=== PATIENT | female | born 1945 | race African-American/Black ===

== ENCOUNTER 2016-08-29 06:02 | Inpatient (IN) | payer OTHER ==
[~2016-08-29] VITALS: Ht 177.8 cm; Wt 193.5 kg
[2016-08-29 06:02] VITALS: BP 108/50; PULSE 100; RESP 20; TEMP 98.4; O2SAT 98
[~2016-08-29 06:02] MED LIST: ASPI-1063 PO; BENA40TA2 PO; CALC-226 PO; CHRO1TAB8 PO; CIPR-211 PO; CYAN10009 PO; DOCU250C PO; DOXY100T2 PO; FURO-149 PO; HUM10VIA3 SUBCUT; MAGN250T27 PO; NIFE90TA48 PO; POTA20TA83 PO; PYRI100T2 PO; [UNRECOGNIZED DRUG - CODE] PO
--- NOTE | 2016-08-29 06:05 | NUR ---
Placed in room 2. Placed on personnel monitor, blood pressure machine and pulse oximeter. To gown for exam. Side rails up. Report given to Pasha PICHARDO. Placed by Amy PICHARDO.
--- NOTE | 2016-08-29 06:10 | NUR ---
ER Dr. Brantley at bedside examining patient.
--- NOTE | 2016-08-29 06:10 | NUR ---
Pt came in by ALS. Pt states she has been feeling SOB with exertion when she walked to the bathroom. Pt has bilateral leg pain /. Pt has +4 pedal edema that is weeping and +4 pedal edema in the L leg. Legs are very swollen and flaky. Pt reports no SOB while sitting with head elevated. AAOx4. Pt placed on ekg monitor tech and will continue to monitor. No other injuries or complaints mentioned/noted. No distress noted.
--- NOTE | 2016-08-29 06:20 | NUR ---
# 20 gauge angiocath placed to R AC. Use of asceptic technique. Opsite placed over site. Blood return noted. Blood for lab drawn from site. Flushed with 10 cc of normal saline. No evidence of infiltration noted. Patient tolerated well.
--- NOTE | 2016-08-29 07:00 | NUR ---
Care and report endorsed to Denys KONG
--- NOTE | 2016-08-29 07:13 | NUR ---
Assumed care of patient, introduced self. Pt is A.A answering questions appropriately, no acute distress. V/S stable.
[2016-08-29 07:31] LABS: HEMOGLOBIN 8.5 g/dL (12.0-16.0); WHITE BLOOD COUNT (AUTO) 26.3 K/uL (4.8-10.8)
[2016-08-29 07:38] LABS: HEMATOCRIT 25.9 % (36-48); MEAN CORPUSCULAR HEMOGLOBIN 25 pg (27-31); MEAN CORPUSCULAR HGB CONC 33 % (32-36); MEAN CORPUSCULAR VOLUME 77 fL (79.0-98.0); PLATELET COUNT (AUTO) 127 K/uL (130-430); RED BLOOD CELL COUNT(AUTO) 3.36 MIL/uL (4.2-6.2)
[2016-08-29 07:49] LABS: BILIRUBIN,URINE 2+ (NEGATIVE); BLOOD, URINE 2+ (NEGATIVE); CLARITY/URINE CLOUDY (CLEAR); COLOR,URINE YELLOW (YELLOW); GLUCOSE,URINE TRACE (NEGATIVE); KETONES,URINE TRACE (NEGATIVE); LEUKOCYTE ESTERASE ,URINE 2+ (NEGATIVE); NITRITE, URINE NEGATIVE (NEGATIVE); PROTEIN URINE 2+ (NEGATIVE)
[2016-08-29 07:51] LABS: ANION GAP 16 (5-15); CALCIUM 8.2 mg/dL (8.4-11.0); CHLORIDE 98 mmol/L (98-107); CREATININE 4.28 mg/dL (0.55-1.30); GLUCOSE 299 mg/dL (70-99); SODIUM SERUM 133 mmol/L (136-145); UREA NITROGEN, BLOOD 92 mg/dL (8-21)
[2016-08-29 07:55] LABS: POTASSIUM 6.2 mmol/L (3.5-5.1)
[2016-08-29 08:04] LABS: ALANINE AMINOTRANSFERASE 83 U/L (12-78); ALBUMIN 1.8 g/dL (3.4-4.8); ASPARTATE AMINOTRANSFERASE 239 U/L (10-37); CREATINE KINASE, TOTAL 89 U/L (26-192); TOTAL BILIRUBIN 3.5 mg/dL (0.0-1.0); TOTAL PROTEIN, SERUM 7.8 g/dL (6.4-8.3)
[2016-08-29 08:11] LABS: BAND % (MANUAL) 11 % (0-6)
[2016-08-29 08:12] LABS: BASOPHILS % (MANUAL) 0 % (0-2); EOSINOPHILS % (MANUAL) 0 % (0-7); LYMPHOCYTES % (MANUAL) 24 % (20-46); MONOCYTES % (MANUAL) 6 % (0-11)
[2016-08-29] MEDS ORDERED: DEXTROSE 50% JECT 50 ML DISP.SYRIN IVP ONE (08:15)
[2016-08-29] MEDS ORDERED: SODIUM POLYSTYRENE SULFONATE 15 GM/60 ML UDBTL PO ONE (08:15)
[2016-08-29] MEDS ORDERED: INSULIN REGULAR, HUMAN 10 UNITS/0.1 ML INJ IVP ONE (08:15)
[2016-08-29] MEDS ORDERED: SODIUM BICARBONATE 8.4% JECT 50 MEQ/50 ML SYRINGE IVP ONE (08:15)
[2016-08-29] MEDS ORDERED: NACL 0.9% 1,000 ML IV ONE (08:15)
[2016-08-29 08:19] LABS: BACTERIA,URINE MODERATE /HPF (None Seen); WBC,URINE 20-50 /HPF (0-3)
[2016-08-29] MEDS ORDERED: HEPARIN 25,000 UNITS/D5W 250ML 250 ML IV PRN (08:30)
[2016-08-29] MEDS ORDERED: LEVOFLOXACIN 500 MG/D5W 100 ML IV ONE (08:30)
[2016-08-29 09:14] LABS: INR 1.3 (0.8-1.2); PROTHROMBIN TIME 13.7 SECS (9.5-12.5)
--- NOTE | 2016-08-29 09:20 | NUR ---
Addendum: Patient trans by Denys PICHARDO to tele via [employer] with phototypesetting equipment monitor. Report was given to Rimma PICHARDO
--- NOTE | 2016-08-29 09:25 | NUR ---
ADMISSION NOTE Received patient from ER via rebecca, received report from Denys PICHARDO. Patient admitted with diagnosis of Renal Failure. Patient oriented to hospital routine, call light, toileting and safety-patient verbalized understanding.
--- NOTE | 2016-08-29 09:45 | NUR ---
Wound Consult: Late note for 0945 secondary to patient care. Wound consult request per Dr. Park. Thank you, Dr. Park, for the consult. Patient was awake, alert, oriented, and received in a [place] bed with an IsoFlex ИРИНА Mattress with low air-loss therapy initiated. Skin is poor. Past Medical History: Diabetes Mellitus, Hypertension, Charcot joints, Obesity, Hyperlipidemia, DJD, and history of Chronic Constipation. Recent Labs: WBC 26.3, RBC 3.36, Hgb 8.5, Hgb 25.9, PLT 127, Na 133, K 6.2, BUN 92, Creat 4.28, Gluc 299, Ca 8.2, Alk Phos 1068, Alb 1.8, PT 13.7, INR 1.3, PTT 56.8, D-Dimer 4980. Blood Culture x 2 and Urine Culture results in progress. Intrinsic factors that delay wound healing: Diabetes Mellitus. Extrinsic factors that delay wound healing: Decreased mobility. Wound Assessment: 1) Right Medial/Plantar Foot: Appears to be a Diabetic Ulcer, present on admission. Wound bed is 90% dull pink tissue, 10% dark discoloration. No odor, scant sanguineous drainage. Phillip-wound calloused. Wound measures 2.4 cm x 1.5 cm x 0.2 cm. Bilateral feet have Charcot deformity. Recommend: Cleanse wound with normal saline. Put moisture barrier cream onto phillip-wound. Put Venelex ointment onto wound bed. Cover wound with foam dressing. Perform wound care daily, and as needed for dressing soiling or dislodgement. 2) Right Great Toe, Medial Aspect: Appears to be dark discoloration, present on admission. Wound bed has a hard feel. No odor, no drainage. Phillip-wound intact. Wound measures 0.9 cm x 0.8 cm. Recommend: No dressing needed. Continue to monitor site for worsening condition. 3) Right Dorsal Foot at Joint Line: Appears to be a wound, present on admission. Wound bed is 80% black tissue, 10% red tissue, 10% yellow tissue. No odor, scant sanguineous drainage. Phillip-wound intact. Wound measures 2.0 cm x 3.0 cm x 0.8 cm. Recommend: Cleanse wound with normal saline. Put moisture barrier cream onto phillip-wound. Put Venelex ointment onto wound bed. Cover wound with foam dressing, cut to size. Cover with ABD Pad. Wrap with marya wrap. Perform wound care daily, and as needed for dressing soiling or dislodgement. 4) Right Medial Distal Calf: Appears to be a wound, present on admission. Wound bed is 100% pink tissue. No odor, no drainage. Phillip-wound intact. Wound measures 1.0 cm x 0.9 cm x 0.2 cm. 5) Right Posterior Calf: Scar tissue with three open wounds, present on admission. Wound beds are 5% pink tissue, 95% yellow tissue. No odor, no drainage. Phillip-wound intact. Wound measures 5.6 cm x 5.6 cm. Recommend: Cleanse wounds with normal saline. Put moisture barrier cream onto phillip-wounds. Put Venelex ointment onto wound beds. Cover wounds with foam dressings. Perform wound care daily, and as needed for dressing soiling or dislodgement. 6) Right Fifth Toe: Appears to be a wound, present on admission. Wound bed is 100% pink tissue. No odor, no drainage. Phillip-wound intact. Wound measures 0.4 cm x 0.6 cm x 0.2 cm. Recommend: Cleanse wound with normal saline. Put moisture barrier cream onto phillip-wound. Put Venelex ointment onto wound bed. Cover wound with foam dressing, cut to size. Wrap with marya wrap. Perform wound care daily, and as needed for dressing soiling or dislodgement. Also recommend: Encourage and assist patient with repositioning every two hours with pillow support, off-load pressure areas with pillows for pressure re-distribution. Offload and float bilateral heels with pillows. Perform skin care and monitor skin integrity q shift. Put moisture barrier cream onto moisture susceptible areas qid and prn. Maintain patient on a low air-loss mattress.
--- NOTE | 2016-08-29 09:45 | NUR ---
ADMISSION PATIENT WAS BROUGHT TO ROOM FROM ER WITH ACUTE RENAL FAILURE AND SEPSIS PROTOCOL WAS DONE. PATIENT IS ALERT AND ORIENTED AND ABLE TO COMMUNICATE NEEDS TO STAFF. PATIENT IS BEDREST AND HAS MULTIPLE WOUNDS ON HER RIGHT LOWER LEG, ANKLE AND TOE. WOUND CARE NURSE WAS IN TO SEE THE WOUNDS AND NEW ORDERS WERE NOTED AND WOUND CARE WILL BE PERFORMED. DR PAEZ WAS MADE AWARE OF LACTIC ACID OF 6.[address] RIVERA TO BE CONSULTED FOR HYDRATION. DR RIVERA WAS CALLED AND WAITING FOR HIM TO SEE THE PATIENT. CALL LIGHT IS WITHIN REACH AND PATIENT IS ON A ИРИНА MATTRESS. WILL CONTINUE TO MONITOR.
[2016-08-29] MEDS ORDERED: *HEPARIN PER PHARMACY XX ONE (10:00)
[2016-08-29 10:02] VITALS: BP 109/48; PULSE 98; RESP 20; TEMP 97.3; O2SAT 96
--- NOTE | 2016-08-29 10:25 | NUR ---
STAT CONSULT RENAL RENAL FAILURE DR RIVERA [phone] S/W [facility] OFFICE @ [id number]
[2016-08-29] MEDS ORDERED: HEPARIN SODIUM,PORCINE 5000 UNITS/ML VIAL IVP ONE (10:30)
[2016-08-29] MEDS ORDERED: HEPARIN 25,000 UNITS in 250 ML PREMIX IV PRN (10:30)
[2016-08-29] MEDS ORDERED: HEPARIN SODIUM,PORCINE 3000 UNITS/0.6 ML BOLUS IVP PRN (10:30)
[2016-08-29] MEDS ORDERED: HEPARIN SODIUM,PORCINE 2000 UNITS/0.4 ML BOLUS IVP PRN (10:30)
--- NOTE | 2016-08-29 11:30 | NUR ---
NOTE PATIENT'S DAUGHTER IS AT BEDSIDE AND HAS QUESTIONS AND I WAS ABLE TO ANSWER SOME AND EXPLAINED WHO THE DOCTORS WERE AND THEY WOULD BE IN TO SEE THE PATIENT LATER. CALL LIGHT IS WITHIN REACH AND JUST WAITING FOR THE CREAM TO COME IN. BED IS IN LOWEST POSITION AND WILL CONTINUE TO MONITOR
[2016-08-29 12:30] VITALS: BP 127/73; PULSE 93; RESP 20; TEMP 96.9; O2SAT 96
[2016-08-29] MEDS ORDERED: DEXTROSE 50% JECT 50 ML DISP.SYRIN IVP PRN (13:15)
[2016-08-29] MEDS ORDERED: ACETAMINOPHEN 325 MG TABLET PO PRN (13:45)
[2016-08-29] MEDS: ONDANSETRON HCL 4 MG/2 ML VIAL IVP PRN (14:00)
--- NOTE | 2016-08-29 14:00 | NUR ---
NOTE PATIENT IS RESTING COMFORTABLY IN BED WITH NO NOTED DISTRESS, DISCOMFORT OR SOB. PATIENT HAS SOME NAUSEA AND DR PAEZ WAS AWARE AND NEW ORDER FOR ZOFRAN WAS GIVEN. CALL LIGHT IS WITHIN REACH AND BED IS IN LOWEST POSITION. WILL CONTINUE TO MONITOR.
[2016-08-29] MEDS: D5NS 1,000 ML IV SCH ×2 (15:06→23:19)
[2016-08-29] MEDS: BALSAM PERU/CASTOR OIL 60 GM OINT...G. TP SCH (15:06)
--- NOTE | 2016-08-29 16:46 | NUR ---
NOTE PATIENT IS RESTING COMFORTABLY IN BED WITH NO COMPLAINTS OF PAIN, NO NOTED DISTRESS, DISCOMFORT OR SOB. WOUND CARE WAS PROVIDED TO RIGHT LOWER LEG, VENELEX WAS APPLIED TO THE WOUND AND Z GUARD WAS APPLIED TO THE PERIWOUND AND FOAM DRESSING WAS APPLIED. PATIENT TOLERATED IT WELL. CALL LIGHT IS WITHIN REACH AND WILL CONTINUE TO MONITOR.
[2016-08-29] MEDS ORDERED: INSULIN NPH/REGULAR 70-30, 100 UNITS/ML, 10 ML VIAL SUBCUT SCH (17:00)
[2016-08-29 17:14] VITALS: BP 121/67; PULSE 96; RESP 20; TEMP 97.4; O2SAT 94
[2016-08-29] MEDS: INSULIN REGULAR, HUMAN 100 UNITS/ML, 10 ML VIAL (novoLIN R) SUBCUT PRN ×2 (17:45→23:19)
--- NOTE | 2016-08-29 18:14 | NUR ---
CLOSING NOTE PATIENT IS RESTING IN BED COMFORTABLY IN BED WITH NO COMPLAINTS OF PAIN, NO NOTED DISTRESS, DISCOMFORT OR SOB. PATIENT'S BS WAS 395 AND 10 UNITS OF REGULAR INSULIN WAS GIVEN AND ANOTHER RN WITNESSED. CALL LIGHT IS WITHIN REACH AND BED IS IN LOWEST POSITION. WILL GIVE REPORT TO NIGHT NURSE. Addendum: 08/29/16 at 1857 by Whit Sheets RN APPT WAS 56.8 AND PROTOCOL IS TO CONTINUE SAME DOSE ON HEPARIN DRIP
--- NOTE | 2016-08-29 19:36 | NUR ---
Initial Note Patient in bed at this time resting, respirations even and unlabored. No acute distress noted at this time. Patient resting with eyes closed. Patient in no apparent pain or discomfort at this time, no facial grimacing noted at this time. Call light in hand. Fall and safety precautions in place. Will continue to monitor.
[2016-08-29 20:00] VITALS: BP 107/45; PULSE 87; RESP 18; TEMP 97.8; O2SAT 97
[2016-08-29] MEDS ORDERED: CIPROFLOXACIN HCL 500 MG TABLET PO SCH (21:00)
[2016-08-29] MEDS ORDERED: BENAZEPRIL HCL 20 MG TABLET (LOTENSIN) PO SCH (21:00)
--- NOTE | 2016-08-29 22:29 | NUR ---
RN ROUNDS Patient in bed at this time resting with eyes closed, respirations even and unlabored. No acute distress noted at this time. Patient in no apparent pain or discomfort at this time no facial grimacing noted at this time. Call light in hand. Fall and safety precautions in place. Will continue to monitor.
[2016-08-30] VITALS (7 sets, daily range): BP systolic 110–146; BP diastolic 44–87; PULSE 85–97; RESP 18–20; TEMP 96.8–97.8; O2SAT 94–97
--- NOTE | 2016-08-30 00:13 | NUR ---
RN ROUNDS Patient in bed at this time resting, respirations even and unlabored. No acute distress noted at this time. Patient in no apparent pain or discomfort at this time, no facial grimacing noted. Call light in hand. Fall and safety precautions in place. Will continue to monitor.
--- NOTE | 2016-08-30 01:42 | NUR ---
Bed Side commode Safely assisted patient to bedside commode with assistance of another nurse. And safely assisted patient back to bed. Patient tolerated well. Patient noted to void. Blood noted when patent was wiped with toilet paper. Call light in hand. Fall and safety precautions in place. Will continue to monitor.
--- NOTE | 2016-08-30 04:20 | NUR ---
RN ROUNDS Patient in bed at this time resting, respirations even and unlabored. No acute distress noted at this time. Call light in hand. Vital signs stable. Fall and safety precautions in place. Will continue to monitor
[2016-08-30] MEDS: INSULIN REGULAR, HUMAN 100 UNITS/ML, 10 ML VIAL (novoLIN R) SUBCUT PRN ×3 (06:06→17:26)
--- NOTE | 2016-08-30 06:24 | NUR ---
IV RE-INSERTION: Complaining of pain to IV site. Restarted on left thumb 22g. Resumed current IVF as ordered per MD. Will observe for any signs of infiltration.
--- NOTE | 2016-08-30 06:43 | NUR ---
Closing Note Patient in bed at this time resting, respirations even and unlabored. No acute distress noted at this time. Patient denies any pain or discomfort at this time. IV site patent with no signs or symptoms of infiltration noted. Call light in hand. Fall and safety precautions in place. Will endorse to day shift nurse.
--- NOTE | 2016-08-30 07:58 | NUR ---
AM ROUNDS: No s/s of distress noted. Patient educated on safety precautions. Will continue to monitor.
[2016-08-30] MEDS ORDERED: LEVOFLOXACIN 500 MG/D5W 100 ML IV SCH (08:00)
--- NOTE | 2016-08-30 08:52 | NUR ---
Pulmonary consult Order received for a consult with Dr Herrera to r/o PE. Spoke with Vanessa at the exchange. Will follow up as needed.
[2016-08-30] MEDS ORDERED: POTASSIUM CHLORIDE 20 MEQ TAB.PRT.SR PO SCH (09:00)
[2016-08-30] MEDS ORDERED: LEVOFLOXACIN 250 MG TABLET PO SCH (09:00)
[2016-08-30] MEDS ORDERED: ALBUTEROL SULFATE 0.083% 2.5 MG/3 ML VIAL.NEB INH PRN (09:00)
[2016-08-30] MEDS ORDERED: ASPIRIN 81 MG TABLET(ECOTRIN) PO SCH (09:00)
[2016-08-30] MEDS ORDERED: FUROSEMIDE 40 MG TABLET PO SCH (09:00)
[2016-08-30] MEDS ORDERED: IPRATROPIUM BROM 0.5 MG/2.5 ML VIAL.NEB (ATROVENT) INH PRN (09:00)
--- NOTE | 2016-08-30 09:08 | NUR ---
Nutrition Update Willard Scale 16 noted. Pt admitted for renal failure. Diet: NPO BMI: 50.2 kg/m2 RD to follow per nutrition care standards.
[2016-08-30 09:27] LABS: HEMATOCRIT 24.4 % (36-48); HEMOGLOBIN 7.9 g/dL (12.0-16.0); MEAN CORPUSCULAR HEMOGLOBIN 25 pg (27-31); MEAN CORPUSCULAR HGB CONC 32 % (32-36); MEAN CORPUSCULAR VOLUME 78 fL (79.0-98.0); PLATELET COUNT (AUTO) 110 K/uL (130-430); RED BLOOD CELL COUNT(AUTO) 3.15 MIL/uL (4.2-6.2); RED CELL DISTRIBUTION WIDTH 22.4 % (9.0-15.0)
--- NOTE | 2016-08-30 09:59 | NUR ---
PATIENT RESTING: Patient resting quietly. No acute distress noted. Vital signs within normal range.
[2016-08-30 10:10] LABS: ATYPICAL LYMPHOCYTES % 0 % (0-0); BAND % (MANUAL) 7 % (0-6); BASOPHILS % (MANUAL) 0 % (0-2); EOSINOPHILS % (MANUAL) 0 % (0-7); LYMPHOCYTES % (MANUAL) 22 % (20-46); MONOCYTES % (MANUAL) 6 % (0-11)
[2016-08-30] MEDS: ALBUTEROL SULFATE 0.083% 2.5 MG/3 ML VIAL.NEB INH SCH ×4 (11:00→23:00)
[2016-08-30] MEDS: IPRATROPIUM BROM 0.5 MG/2.5 ML VIAL.NEB (ATROVENT) INH SCH ×4 (11:00→23:00)
[2016-08-30 11:02] LABS: ANION GAP 11 (5-15); CALCIUM 7.7 mg/dL (8.4-11.0); CHLORIDE 102 mmol/L (98-107); CREATININE 5.17 mg/dL (0.55-1.30); SODIUM SERUM 136 mmol/L (136-145)
[2016-08-30 11:17] LABS: ALANINE AMINOTRANSFERASE 77 U/L (12-78); ALBUMIN 1.6 g/dL (3.4-4.8); ASPARTATE AMINOTRANSFERASE 236 U/L (10-37); TOTAL BILIRUBIN 3.1 mg/dL (0.0-1.0); TOTAL PROTEIN, SERUM 6.5 g/dL (6.4-8.3)
[2016-08-30 11:26] LABS: GLUCOSE 423 mg/dL (70-99); UREA NITROGEN, BLOOD 101 mg/dL (8-21)
[2016-08-30] MEDS: D5NS 1,000 ML IV SCH (11:45)
--- NOTE | 2016-08-30 12:03 | NUR ---
PATIENT RESTING: Patient resting quietly. No acute distress noted. Vital signs within normal range.
[2016-08-30] MEDS: BALSAM PERU/CASTOR OIL 60 GM OINT...G. TP SCH (13:29)
--- NOTE | 2016-08-30 14:33 | NUR ---
PATIENT RESTING: Patient resting quietly. No acute distress noted. Vital signs within normal range.
--- NOTE | 2016-08-30 15:17 | NUR ---
Consult Order received for a consult with Dr Wiggins for abril cath placement. Spoke with Mayra at the exchange. Will follow up as needed.
--- NOTE | 2016-08-30 16:03 | NUR ---
PATIENT RESTING: Patient resting quietly. No acute distress noted. Vital signs within normal range.
[2016-08-30] MEDS ORDERED: HEPARIN SODIUM,PORCINE 5000 UNITS/ML VIAL ONE (16:07)
[2016-08-30] MEDS ORDERED: LIDOCAINE 1%, 20 ML MDV 0 ML ONE (16:08)
--- NOTE | 2016-08-30 16:31 | NUR ---
LEYLA CATHETER: Dr. Wiggins spoke with family and they refused insertion. Dr. Tej galdamez.
--- NOTE | 2016-08-30 16:44 | NUR ---
COMMUNICATION: Dr. Burnham made aware that Navarro catheter not placed. States he will see her tomorrow.
--- NOTE | 2016-08-30 18:25 | NUR ---
CLOSING NOTE: All needs met. Patient to have Navarro catheter insertion tomorrow for hemodialysis. Will endorse to NOC shift nurse.
--- NOTE | 2016-08-30 18:37 | NUR ---
HEMATURIA: Blood in urine noted. Dr. Vivian galdamez.
--- NOTE | 2016-08-30 18:52 | NUR ---
COMMUNICATION: Reported hematuria to Dr. Park. Orders received.
--- NOTE | 2016-08-30 19:23 | NUR ---
Initial PM Note Patient was received lying in bed fully AAO x4. Speech is clear and pt is able to make her needs known. No c/o pain or discomfort. No acute distress noted at this time. Skin is warm and dry to touch. No signs or symptoms of hypoglycemia or hyperglycemia noted. Saline locks are patent in RAC and Lt Thumb. No signs of infiltration noted at the saline locks sites. Rt leg and Rt foot dressings are dry and intact. Fall and safety precautions are in place. Call light is with pt. Bed is in the lowest and locked positions. Bed alarm is on. Pt was instructed to call for assistance as needed and pt verbalized understanding. Will continue to monitor patient.
--- NOTE | 2016-08-30 21:00 | NUR ---
Rounds Pt is resting comfortably in bed. Fall and safety precautions are in place.
--- NOTE | 2016-08-30 23:00 | NUR ---
Rounds Pt is resting in bed without any distress noted. Call light is with pt.
[2016-08-31 00:15] VITALS: BP 108/63; PULSE 90; RESP 18; TEMP 96.4; O2SAT 95
[2016-08-31] MEDS: INSULIN REGULAR, HUMAN 100 UNITS/ML, 10 ML VIAL (novoLIN R) SUBCUT PRN ×5 (00:18→23:45)
--- NOTE | 2016-08-31 00:18 | NUR ---
Blood Sugar Accucheck 415. Skin remains warm and dry to touch. Pt is fully AAO x4. No c/o discomfort. Regular Insulin 12 units given SQ and Dr. Park was paged.
--- NOTE | 2016-08-31 00:22 | NUR ---
PAGED PAGED VENKATESH LOVETT AT [phone] SPOKE WITH FLETCHER.
--- NOTE | 2016-08-31 00:23 | NUR ---
Dr. Park Answering Service connected RN with Dr. Park on the phone. Dr. Park was informed midnight Accucheck was 415 and 12 units Regular Insulin already given SQ. Dr. Park stated, "No additional Insulin needed."
--- NOTE | 2016-08-31 01:00 | NUR ---
Rounds Pt is sleeping quietly in bed. Call light is with pt.
[2016-08-31] MEDS: ONDANSETRON HCL 4 MG/2 ML VIAL IVP PRN ×3 (02:59→14:11)
--- NOTE | 2016-08-31 02:59 | NUR ---
Nausea Zofran 4mg was given IV for c/o nausea with relief.
[2016-08-31] MEDS: ALBUTEROL SULFATE 0.083% 2.5 MG/3 ML VIAL.NEB INH SCH ×5 (03:00→19:00)
[2016-08-31] MEDS: IPRATROPIUM BROM 0.5 MG/2.5 ML VIAL.NEB (ATROVENT) INH SCH ×5 (03:00→19:00)
[2016-08-31 03:31] VITALS: BP 102/73; PULSE 98; RESP 20; TEMP 97; O2SAT 98
--- NOTE | 2016-08-31 05:00 | NUR ---
Rounds Pt is sleeping comfortably in bed at this time. No respiratory distress noted. Fall precautions are in place.
--- NOTE | 2016-08-31 06:30 | NUR ---
Blood Sugar Accucheck 454 and repeated to be 470. Skin remains warm and dry to touch. Pt is fully AAO x4. No c/o pain discomfort at this time. Regular Insulin 12 units given SQ and Dr. Park was paged.
--- NOTE | 2016-08-31 06:50 | NUR ---
Dr. Vivian Park called back and was informed accuchecks were 454 and 470 this AM. He was also informed 12 units Regular Insulin already given SQ. No new orders given by Dr. Park.
--- NOTE | 2016-08-31 07:00 | NUR ---
Closing Note Pt is resting comfortably in bed. All pt's needs were attended to. No fall or injury noted this shift. Will endorse to day shift nurse.
[2016-08-31 07:29] LABS: ALANINE AMINOTRANSFERASE 79 U/L (12-78); ALBUMIN 1.5 g/dL (3.4-4.8); ANION GAP 18 (5-15); ASPARTATE AMINOTRANSFERASE 226 U/L (10-37); CALCIUM 7.5 mg/dL (8.4-11.0); CHLORIDE 98 mmol/L (98-107); CREATININE 5.69 mg/dL (0.55-1.30); POTASSIUM 5.3 mmol/L (3.5-5.1); SODIUM SERUM 136 mmol/L (136-145); TOTAL BILIRUBIN 3.2 mg/dL (0.0-1.0); TOTAL PROTEIN, SERUM 7.1 g/dL (6.4-8.3)
[2016-08-31 07:33] LABS: GLUCOSE 417 mg/dL (70-99)
[2016-08-31 07:34] LABS: UREA NITROGEN, BLOOD 102 mg/dL (8-21)
[2016-08-31 07:42] LABS: HEMATOCRIT 24.9 % (36-48); HEMOGLOBIN 8.1 g/dL (12.0-16.0); MEAN CORPUSCULAR HEMOGLOBIN 25 pg (27-31); MEAN CORPUSCULAR HGB CONC 33 % (32-36); MEAN CORPUSCULAR VOLUME 77 fL (79.0-98.0); PLATELET COUNT (AUTO) 108 K/uL (130-430); RED BLOOD CELL COUNT(AUTO) 3.25 MIL/uL (4.2-6.2); RED CELL DISTRIBUTION WIDTH 21.5 % (9.0-15.0)
[2016-08-31 07:45] LABS: WHITE BLOOD COUNT (AUTO) 30.5 K/uL (4.8-10.8)
[2016-08-31 08:00] VITALS: BP 95/45; PULSE 100; RESP 19; TEMP 97.2; O2SAT 95
--- NOTE | 2016-08-31 08:00 | NUR ---
NOTE: RECEIVED REPORT FROM NIGHT NURSE. PATIENT IS RESTING COMFORTABLY IN BED. NO S/S OF DISTRESS OR SOB. PATIENT IS ALERT AND ORIENTED. RECEIVED CRITICAL LABS OF BUN, WBC, AND GLUCOSE AND ALL REPORTED TO APPROPRIATE DOCTORS. VITAL SIGNS WNL, ASSESSMENT COMPLETE. CALL LIGHT IN REACH, BED IN LOWEST POSITION, AND WILL CONTINUE TO MONITOR.
[2016-08-31 08:27] LABS: BAND % (MANUAL) 12 % (0-6); BASOPHILS % (MANUAL) 0 % (0-2); EOSINOPHILS % (MANUAL) 1 % (0-7); LYMPHOCYTES % (MANUAL) 35 % (20-46); MONOCYTES % (MANUAL) 2 % (0-11)
[2016-08-31] MEDS: LEVOFLOXACIN 250 MG/D5W 50 ML IV SCH (08:54)
[2016-08-31] MEDS: BALSAM PERU/CASTOR OIL 60 GM OINT...G. TP SCH (08:54)
--- NOTE | 2016-08-31 09:34 | NUR ---
CONSULT ID ELEVATED WBC DR CUNNINGHAM [phone] S/W [facility] OFFICE @ [id number]
[2016-08-31] MEDS ORDERED: HEPARIN IV FLUSH 1 UNIT/ML PF 6ML SYRINGE IV ONE (10:00)
[2016-08-31] MEDS ORDERED: HEPARIN SODIUM,PORCINE 5000 UNITS/ML VIAL MC ONE (10:00)
--- NOTE | 2016-08-31 10:09 | NUR ---
CONSULT ONCOLOGY LIVER METS DR ROWE [phone] S/W [facility] OFFICE @ 6362
--- NOTE | 2016-08-31 10:14 | NUR ---
NOTE: DR. ADRIAN AND DR. PAEZ HERE TO SEE PATIENT. QUINTAN CATH PLACEMENT ON HOLD RIGHT NOW, DT. ADRIAN SAID HE WOULD COME BACK LATER. CALL LIGHT IN REACH, BED IN LOWEST POSITION, AND WILL CONTINUE TO MONITOR.
[2016-08-31 12:00] VITALS: BP 129/96; PULSE 99; RESP 20; TEMP 96.8; O2SAT 97
--- NOTE | 2016-08-31 12:22 | NUR ---
NOTE: PATIENT IS RESTING COMFORTABLY IN BED. NO S/S OF DISTRESS OR SOB. PATIENT IS ALERT AND ORIENTED, ABLE TO EXPRESS NEEDS, AND ASK FOR ASSISTANCE. CALL LIGHT IN REACH, BED IN LOWEST POSITION, AND WILL CONTINUE TO MONITOR.
[2016-08-31 12:28] VITALS: Ht 177.8 cm; Wt 193.5 kg
--- NOTE | 2016-08-31 14:03 | NUR ---
NOTE: PATIENT IS RESTING COMFORTABLY IN BED. NO S/S OF DISTRESS OR SOB. PATIENT IS ALERT AND ORIENTED. CALL LIGHT IN REACH, BED IN LOWEST POSITION, AND WILL CONTINUE TO MONITOR.
[2016-08-31] MEDS ORDERED: TUBERCULIN,PURIF.PROT.DERIV. 0.1 ML SYR ID ONE (15:15)
--- NOTE | 2016-08-31 15:15 | NUR ---
QUINTAN CATH PLACEMENT QUINTAN CATH PLACED IN LEFT UPPER CHEST BY DR. ADRIAN. PATIENT TOLERATED WELL.
--- NOTE | 2016-08-31 15:30 | NUR ---
WOUND CARE DONE WOUND CARE WAS DONE WITH WOUND CARE NURSE. WOUNDS WERE ASSESSED, PICTURES TAKEN. WOUNDS CLEANED AND DRESSED. WOUND CARE NURSE NOTE TO FOLLOW.
--- NOTE | 2016-08-31 15:30 | NUR ---
Wound Re-Evaluation: Late note for 1529 secondary to patient care. Patient was awake, alert, oriented, and received in a [place] bed with an IsoFlex ИРИНА Mattress with low air-loss therapy initiated. Skin is poor. Blood Culture x 2 results in progress. Urine Culture positive for Escherichia Coli. Intrinsic factors that delay wound healing: Diabetes Mellitus. Extrinsic factors that delay wound healing: Decreased mobility. Wound Assessment: 1) Right Medial/Plantar Foot: Appears to be a Diabetic Ulcer, present on admission. Wound bed is 90% light pink tissue, 10% pink tissue. No odor, no drainage. Erin-wound calloused. Wound measures 1.5 cm x 1.0 cm x 0.2 cm. Bilateral feet have Charcot deformity. Recommend continue: Cleanse wound with normal saline. Put moisture barrier cream onto erin-wound. Put Venelex ointment onto wound bed. Cover wound with foam dressing. Perform wound care daily, and as needed for dressing soiling or dislodgement. 2) Right Great Toe, Medial Aspect: Appears to be dark discoloration, present on admission. Wound bed has a hard feel. No odor, no drainage. Erin-wound intact. Wound measures 0.9 cm x 0.8 cm. Recommend continue: No dressing needed. Continue to monitor site for worsening condition. 3) Right Dorsal Foot at Joint Line: Appears to be a wound, present on admission. Wound bed is 95% yellow tissue, 5% pink tissue. No odor, no drainage. Erin-wound intact. Measures 0.2 cm x 0.3 cm. Recommend continue: Cleanse wound with normal saline. Put moisture barrier cream onto erin-wound. Put Venelex ointment onto wound bed. Cover wound with foam dressing, cut to size. Cover with ABD Pad. Wrap with marya wrap. Perform wound care daily, and as needed for dressing soiling or dislodgement. 4) Right Medial Distal Calf: Appears to be a wound, present on admission. Wound bed is 100% red tissue. No odor, no drainage. Erin-wound intact. Wound measures 0.3 cm x 0.3 cm. 5) Right Posterior Calf: Scar tissue with three open wounds, present on admission. Wound beds are 5% pink tissue, 95% yellow tissue. No odor, no drainage. Erin-wound intact. Recommend continue: Cleanse wounds with normal saline. Put moisture barrier cream onto erin-wounds. Put Venelex ointment onto wound beds. Cover wounds with foam dressings. Perform wound care daily, and as needed for dressing soiling or dislodgement. 6) Right Fifth Toe: Appears to be a wound, present on admission. Wound bed is 95% pink tissue 5% yellow tissue. No odor, no drainage. Erin-wound intact. Wound measures 0.5 cm x 0.5 cm x 0.2 cm. Recommend continue: Cleanse wound with normal saline. Put moisture barrier cream onto erin-wound. Put Venelex ointment onto wound bed. Cover wound with foam dressing, cut to size, then transparent dressing. Wrap with marya wrap. Perform wound care daily, and as needed for dressing soiling or dislodgement. Also recommend continue: Encourage and assist patient with repositioning every two hours with pillow support, off-load pressure areas with pillows for pressure re-distribution. Offload and float bilateral heels with pillows. Perform skin care and monitor skin integrity q shift. Put moisture barrier cream onto moisture susceptible areas qid and prn. Maintain patient on a low air-loss mattress.
[2016-08-31 16:00] VITALS: BP 122/76; PULSE 94; RESP 20; TEMP 96.8; O2SAT 98
--- NOTE | 2016-08-31 16:00 | NUR ---
DIALYSIS DIALYSIS STARTED
[2016-08-31] MEDS ORDERED: LORazepam 2 MG/ML VIAL IVP ONE (17:15)
[2016-08-31] MEDS ORDERED: LORazepam 2 MG/ML VIAL ONE (17:20)
--- NOTE | 2016-08-31 18:29 | NUR ---
CLOSING NOTE: PATIENT IS IN DIALYSIS. NO S/S OF DISTRESS OR SOB. ATIVAN IVP 1 MG WAS GIVEN DUE TO PATIENT BECOMING ANXIOUS AND WANTING TO GET UP OUT BED. UNSAFE CONDITIONS FOR DIALYSIS TO CONTINUE. DR. RIVERA WAS CALLED AND HE GAVE THE ORDER. CALL LIGHT IN REACH, BED IN LOWEST POSITION, AND WILL GIVE REPORT TO NIGHT NURSE.
[2016-08-31 19:40] VITALS: BP 119/53; PULSE 94; RESP 20; TEMP 97.3; O2SAT 98
--- NOTE | 2016-08-31 19:40 | NUR ---
OPENING NOTES RECEIVED REPORT FROM DAY SHIFT NURSE SAM. PATIENT CURRENTLY RECEIVING HEMODIALYSIS WITH DIALYSIS NURSE PRESENT. PATIENT IS CALM. NO SIGNS OR SYMPTOMS OF DISTRESS NOTED. BED IN LOWEST POSITION, CALL LIGHT WITHIN REACH.
--- NOTE | 2016-08-31 22:32 | NUR ---
ROUNDS PATIENT RESTING COMFORTABLY. PATIENT A/OX4. LOWER EXTREMITIES ARE ELEVATED. IV PATENT, NO SIGNS OF INFILTRATION NOTED. BED IN LOWEST POSITION, CALL LIGHT WITHIN REACH. WILL CONTINUE TO MONITOR.
[2016-09-01 00:45] VITALS: BP 128/53; PULSE 94; RESP 18; TEMP 96.1; O2SAT 99
--- NOTE | 2016-09-01 01:29 | NUR ---
ROUNDS PATIENT RESTING COMFORTABLY. VISIBLE CHEST RISE AND FALL. FALL RISK MEASURES IN PLACE. CALL LIGHT WITHIN REACH. BED ALARM ON. WILL CONTINUE TO MONITOR.
--- NOTE | 2016-09-01 03:18 | NUR ---
ROUNDS PATIENT SLEEPING COMFORTABLY. CHEST RISE AND FALL CLEARLY VISIBLE. BED IN LOWEST POSITION, CALL LIGHT WITHIN REACH, BED ALARM ON. WILL CONTINUE TO MONITOR.
[2016-09-01 04:00] VITALS: BP 124/57; PULSE 98; RESP 20; TEMP 97.3; O2SAT 100
[2016-09-01] MEDS: INSULIN REGULAR, HUMAN 100 UNITS/ML, 10 ML VIAL (novoLIN R) SUBCUT PRN ×3 (06:07→17:43)
--- NOTE | 2016-09-01 06:25 | NUR ---
CLOSING NOTES PATIENT IS RESTING. PATIENT IS AGITATED, OFFERED PAIN MEDICATION, PATIENT REFUSED. WILL ENDORSE TO AM NURSE. PATIENT BED IN LOWEST POSITION, CALL LIGHT WITHIN REACH, BED ALARM ON.
[2016-09-01] MEDS: ALBUTEROL SULFATE 0.083% 2.5 MG/3 ML VIAL.NEB INH SCH ×5 (07:00→23:00)
[2016-09-01] MEDS: IPRATROPIUM BROM 0.5 MG/2.5 ML VIAL.NEB (ATROVENT) INH SCH ×5 (07:00→23:00)
--- NOTE | 2016-09-01 08:00 | NUR ---
INITIAL NOTE RECEIVED REPORT AT BEDSIDE, PT AWAKE, ALERT, NOTED TO BE FIDGETING AND ANXIOUS, VSS, OTHER DUMAS NO S/S OF DISTRESS NOTED, NOTED IV TO RAC SALINE LOCK, PATENT, NO S/S OF INFILTRATION NOTED. PT REORIENTED TO USE OF CALL LIGHT AND IT IS PLACED WITHIN REACH, BED IN LOW POSITION AND LOCKED, BED ALARM ON DUE TO AGITATION AND ORIENTATION. WILL FOLLOW UP.
--- NOTE | 2016-09-01 08:30 | NUR ---
DR SOLEDAD JAY
[2016-09-01] MEDS: BALSAM PERU/CASTOR OIL 60 GM OINT...G. TP SCH (08:41)
[2016-09-01] MEDS: ONDANSETRON HCL 4 MG/2 ML VIAL IVP PRN ×2 (08:41→12:27)
[2016-09-01 09:19] VITALS: BP 105/51; PULSE 95; RESP 19; TEMP 97.7; O2SAT 97
--- NOTE | 2016-09-01 10:00 | NUR ---
Rounding Pt repositioned with pillow support, no s/s of distress, seems agitated, unable to find a comfortable position, needs attended too, safety measures in place, will follow up.
[2016-09-01 11:09] LABS: HEPATITIS A AB, IgM Negative (Negative); HEPATITIS B CORE AB, IgM Negative (Negative); HEPATITIS B SURFACE AG Negative (Negative)
--- NOTE | 2016-09-01 12:00 | NUR ---
accucheck 344, 8 units given per sliding scale.
[2016-09-01 12:34] VITALS: BP 110/46; PULSE 93; RESP 18; TEMP 97.4; O2SAT 95
--- NOTE | 2016-09-01 13:10 | NUR ---
CONS FOR DR PANKAJ GARRIDO TUNNEL MINER DENIZ CARTER FOR SEPSIS
[2016-09-01] MEDS: MORPHINE 2 MG/ML INJ. SYRINGE IVP PRN (13:53)
--- NOTE | 2016-09-01 14:00 | NUR ---
DR PAEZ SPOKE TO FAMILY MEMBER VIA PHONE
--- NOTE | 2016-09-01 14:41 | NUR ---
Mortgage Loan Specialist Note DRUM DRIER received a call from nursing that patient's daughter, Sandrita, was overwrought with sadness and crying at the nurses' station. There is an order for a hospice evaluation written by Dr Park. DRUM DRIER observed Sandrita talking to Dr Park on the phone and sobbing. When the call ended, DRUM DRIER brought daughter to the quiet room. Sandrita lives with patient. Sandrita stated she is currently undergoing treatment for ovarian cancer. Sandrita stated she and patient have been arguing. Sandrita is concerned that patient did not follow up or take care for herself because she was caring for others. Sandrita does not feel ready to talk to someone from hospice at this time. DRUM DRIER encouraged Sandrita to call other family to be here with her. Sandrita said she had phoned her father. Sandrita continued to cry and then wished to be with patient. Sandrita crawled into bed with patient. When DRUM DRIER returned, patient was complaining about Sandrita being in bed with her. Sandrita was then very lethargic. Nursing brought a chair and Sandrita was moved to the chair. Patient appears in pain; nursing is working to alleviate patient's pain. DRUM DRIER phoned the number listed on the face sheet for patient's son, Ruperto Jacobo [phone], and the call disconnected. DRUM DRIER phoned the number listed for patient, , and the call disconnected. DRUM DRIER found a number listed for patient's granddaughter from patient's admission in March 2016, Natalya Camejo [phone]. Spoke with Natalya. She will be here today around 16:30. She will call her sister, who may be able to be here earlier. Mortgage Loan Specialist will continue to follow.
--- NOTE | 2016-09-01 15:00 | NUR ---
DR CHESTER CALLED FOR CONSULT, UPDATED ON PATIENTS STATUS, STATED HE WOULD BE IN TO SEE PATIENT TOMORROW.
[2016-09-01 16:00] VITALS: BP 108/61; PULSE 97; RESP 21; TEMP 97.8; O2SAT 95
--- NOTE | 2016-09-01 16:00 | NUR ---
DR PAEZ PAGED FOR AN INCREASE IN PAIN MEDICATION, PER DAUGHTER JESSICA PATIENT IS IN PAIN AND CURRENT PAIN MEDICATION IS INSUFFICIENT. WILL FOLLOW UP
[2016-09-01] MEDS: MORPHINE 4 MG/ML INJ. SYRINGE IVP PRN ×2 (16:58→23:05)
--- NOTE | 2016-09-01 17:39 | NUR ---
Family Contact numbers: 1. Granddaughter Natalya Camejo [phone] 2. Granddaughter Dania Rodriguez [phone] 3. Granddaughter Evelyn Jacobo [phone] 4. Daughter Sandrita Jacobo [phone] EQUIPMENT DETAILER met with patient's granddaughter, Natalya, in the quiet room. She stated she would like to speak with the oncologist about treatment options and would like to spend the night with the patient to find a good moment to discuss patient's wishes. After that, she may then wish to speak with a hospice employee's representative tomorrow. She will also speak with family members about support in bringing patient home. Patient lives with her son, Ruperto, and daughter, Sandrita. Natalya questioned patient's desire for pain medication; patient's daughter, Sandrita, has been very forceful about increasing pain medication. Granddaughter Natalya will be with patient tonight, which may help patient determine what level of pain medication she would like. Daughter Sandrita has been encouraged to go home. Discussed with Michelle PICHARDO. BELLA discussed with Natalya her mother, Sandrita, patient's daughter, and Sandrita's poor coping skills. Natalya will try to get other family members to help. Above contact numbers were placed in the chart as neither of the phone numbers in the chart are working. Homicide Squad Lieutenant will continue to follow.
[2016-09-01] MEDS: PIPERACILLIN/TAZO 3.375/DEX-IS 50 ML IV SCH (17:44)
[2016-09-01] MEDS ORDERED: ONDANSETRON HCL 4 MG/2 ML VIAL IVP PRN (17:45)
--- NOTE | 2016-09-01 19:00 | NUR ---
closing note pt laying in bed, easy to arouse, no s/s of distress or pain at this time, pt refuses nasal canula despite education, states it bothers her. IV to rac saline lock, patent, no s/s of infiltration noted. Quintan cath dressing reinforced with tape, dressing intact. pt positioned with pillow support. Needs attended to through out the shift, safety measures intact. bed in low position and locked, bed alarm on. call light placed with in reach. Will give report to following shift.
[2016-09-01 19:50] VITALS: BP 118/52; PULSE 91; RESP 20; TEMP 97.9; O2SAT 95
--- NOTE | 2016-09-01 22:00 | NUR ---
NEW IV LINE. CURRENT IV SITE LEAKING.NEW IV STARTED BY 2 RNS, TO RIGHT THUMB USING 24GAUGE NEEDLE.
--- NOTE | 2016-09-01 23:00 | NUR ---
PAIN: PATIENT YELLING FOR HELP, SAYING PULL MY ARM MY LEG ,ASKED IF HAS PAIN SAID YES ,HAVING STRONG TREMORS TO RIGHT ARM /SHOULDER ,LEFT ARM LESS MOVEMENT. BP 123/68,SAT.97%.ROOM AIR. MORPHINE 4MG IV GIVEN.
[2016-09-02] VITALS (19 sets, daily range): BP systolic 90–125; BP diastolic 24–99; PULSE 85–101; RESP 10–22; TEMP 97.8–98.8; O2SAT 89–100
[2016-09-02] MEDS: PIPERACILLIN/TAZO 3.375/DEX-IS 50 ML IV SCH ×4 (00:02→17:46)
[2016-09-02] MEDS: INSULIN REGULAR, HUMAN 100 UNITS/ML, 10 ML VIAL (novoLIN R) SUBCUT PRN ×5 (01:06→17:52)
[2016-09-02] MEDS: IPRATROPIUM BROM 0.5 MG/2.5 ML VIAL.NEB (ATROVENT) INH SCH ×6 (03:00→23:07)
[2016-09-02] MEDS: ALBUTEROL SULFATE 0.083% 2.5 MG/3 ML VIAL.NEB INH SCH ×6 (03:00→23:05)
--- NOTE | 2016-09-02 04:45 | NUR ---
PATIENT WAKING UP.CONTINUE TO HAVE TREMORS SHAKING OF RIGHT SHOULDERS .BOTH EYES STARES UP. NO ROLLING OF EYES. NOT ANSWERING QUESTIONS.
--- NOTE | 2016-09-02 05:00 | NUR ---
GRANDDAUGHTER AT BEDSIDE VERBALIZED CONCERNS ABOUT TREMORS/SHAKING OF ARMS. QUANTITATIVE CONSULTANT AND PRIMARY REASSURANCES THAT HER CONDITION WILL BE ADDRESS FIRST THING THIS AM, AND WILL CALL MD WELL.
[2016-09-02] MEDS: MORPHINE 4 MG/ML INJ. SYRINGE IVP PRN (05:08)
--- NOTE | 2016-09-02 05:15 | NUR ---
FULL BATH RENDERED BY 2 STAFFS. WOUND CARE DONE. ELEVATED ON PILLOWS.
--- NOTE | 2016-09-02 05:40 | NUR ---
MEDICATED WITH MORPHINE 4 MG IV FOR COMFORT.
--- NOTE | 2016-09-02 06:30 | NUR ---
PATIENT CALM THIS TIME.
--- NOTE | 2016-09-02 06:58 | NUR ---
CALLED ATTENDING MD DR PAEZ, RE: HIGH BS > 400. SPOKE TO KAPIL
--- NOTE | 2016-09-02 07:15 | NUR ---
CLOSING: REPORT GIVEN TO AM KYLEE VARGAS. PATIENT IS CALM,WITH O2 .ALL NEEDS WERE ATTENDED WITH PATIENT AND FAMILY.
--- NOTE | 2016-09-02 07:35 | NUR ---
MD orders spoke with dr. park, reported high blood glucose readings. no new orders. Informed Dr. Park of patient getting ansy and not staying still during dialysis, causing an unsafe environment. He ordered Ativan 0.5mg IVP as needed. Orders were noted and carried out.
[2016-09-02] MEDS ORDERED: LORazepam 2 MG/ML VIAL (FOR ER USE) IVP PRN (07:45)
--- NOTE | 2016-09-02 08:00 | NUR ---
OPENING NOTE: RECEIVED REPORT BY NIGHT NURSE. PATIENT IS RESTING IN BED. NO S/S OF DISTRESS OR SOB. PATIENT IS HARD TO AROUSE. VITAL SIGNS TAKEN AND PATIENT DID NOT REACT. PATIENT IS SLEEPING, BREATHING NOTICED. DAUGHTER IS AT BEDSIDE. CALL LIGHT IN REACH, BED IN LOWEST POSITION, AND WILL CONTINUE TO MONITOR.
--- NOTE | 2016-09-02 08:30 | NUR ---
DIALYSIS DIALYSIS NURSE PRESENT IN ROOM.
--- NOTE | 2016-09-02 09:13 | NUR ---
CALLED ATTENDING MD DR PAEZ AGAIN, RE: SEIZURES. SPOKE TO JUDITH
--- NOTE | 2016-09-02 09:16 | NUR ---
CALLED NEUROLOGY CONSULT TO Nida LEBLANC RE; KEVIN. SPOKE TO CLAUDIO
--- NOTE | 2016-09-02 09:17 | NUR ---
SEIZURES WAS CALLED TO ROOM BECAUSE PATIENT DISPLAYING SIGNS OF SEIZURE ACTIVITY. DR. PAEZ WAS PAGED. INFORMED AND HE ORDERED FOR PATIENT TO BE TRANSFERRED TO ICU AND CONSULT FOR DR. PIMENTEL. ORDERS NOTED AND CARRIED OUT AND PATIENT BEING PREPARED FOR TRANSFER.
[2016-09-02 09:37] LABS: HEMOGLOBIN 7.8 g/dL (12.0-16.0); MEAN CORPUSCULAR HEMOGLOBIN 26 pg (27-31); MEAN CORPUSCULAR HGB CONC 34 % (32-36); MEAN CORPUSCULAR VOLUME 76 fL (79.0-98.0); PLATELET COUNT (AUTO) 99 K/uL (130-430); RED BLOOD CELL COUNT(AUTO) 3.04 MIL/uL (4.2-6.2); RED CELL DISTRIBUTION WIDTH 22.4 % (9.0-15.0); WHITE BLOOD COUNT (AUTO) 26.3 K/uL (4.8-10.8)
[2016-09-02] MEDS ORDERED: LORazepam 2 MG/ML VIAL ONE (09:39)
[2016-09-02 09:41] LABS: ANION GAP 16 (5-15); CALCIUM 7.5 mg/dL (8.4-11.0); CHLORIDE 97 mmol/L (98-107); SODIUM SERUM 134 mmol/L (136-145)
[2016-09-02 09:42] LABS: ALANINE AMINOTRANSFERASE 78 U/L (12-78); ALBUMIN 1.5 g/dL (3.4-4.8); ASPARTATE AMINOTRANSFERASE 237 U/L (10-37); CREATININE 7.12 mg/dL (0.55-1.30); TOTAL BILIRUBIN 3.7 mg/dL (0.0-1.0); TOTAL PROTEIN, SERUM 7.1 g/dL (6.4-8.3)
--- NOTE | 2016-09-02 09:45 | NUR ---
ADMISSION TO ICU FROM [facility] Received report from Mavis PICHARDO from [facility]. Received pt awake and agitated, unresponsive to verbal or tactile stimuli, unable to follow commands. Pupils PERRL. Pt noted with periods of tachypnea on 2L O2 via NC. Pt noted with R arm twitching and repetitive movement occasionally. Per Mavis, pt received 0.5 mg ativan prior to transferring to this unit. VS BP 99/44, HR 94, T 98.7, R 14. Pulses present on extremities. Skin warm and dry. All extremities edematous with 2+ pitting edema. R lower extremity noted with weeping and wounds on R toe, medial foot, lateral and proximal leg, covered with dressings and soft form. IVSL 20G noted on R thumb, intact, patent, no signs of erythema noted. Heart sounds regular. Adventitious lung sounds. Bowel sounds present. Abdomen large and soft, nontender. Bed locked in lowest position. HOB elevated. Seizure precautions in place. Heels elevated with pillows. Pt is on jose low air mattress. Will continue to monitor.
[2016-09-02 09:52] LABS: GLUCOSE 421 mg/dL (70-99)
[2016-09-02 09:53] LABS: UREA NITROGEN, BLOOD 105 mg/dL (8-21)
--- NOTE | 2016-09-02 10:00 | NUR ---
TRANSFER TO ICU PATIENT WAS TRANSFERRED TO ICU. BEFORE TRANSFER PATIENT WAS GIVEN A DOSE OF 0.5 MG ATIVAN. REPORT GIVEN AT BEDSIDE.
[2016-09-02 10:01] LABS: BASOPHILS % (MANUAL) 0 % (0-2); EOSINOPHILS % (MANUAL) 0 % (0-7); LYMPHOCYTES % (MANUAL) 25 % (20-46); MONOCYTES % (MANUAL) 5 % (0-11)
[2016-09-02] MEDS ORDERED: LORazepam 2 MG/ML VIAL IVP PRN (10:15)
--- NOTE | 2016-09-02 10:20 | NUR ---
DIALYSIS/BLOOD PRESSURE 84/35 Pt noted with decreasing BP before start of dialysis. Dr. Burnham is present, aware of situation, and order to start pt on levophed to keep SBP above 90. Per Dr. Burnham, "Hold dialysis for now until BP stabilizes." Dr. Burnham also spoke with pt's relative at bedside. Will continue with plan of care.
[2016-09-02] MEDS ORDERED: NOREPINEPHRINE 4 MG/4 ML VIAL IV ONE (10:31)
[2016-09-02] MEDS: BALSAM PERU/CASTOR OIL 60 GM OINT...G. TP SCH (11:00)
[2016-09-02] MEDS: LEVOFLOXACIN 250 MG/D5W 50 ML IV SCH (11:23)
[2016-09-02] MEDS: NOREPINEPHRINE BITARTRATE 4 MG in D5W 246 ML IV PRN ×2 (11:25→19:54)
--- NOTE | 2016-09-02 12:00 | NUR ---
Dr. Rachel at bedside with pt.
--- NOTE | 2016-09-02 12:30 | NUR ---
Dr. Russell at bedside with pt. New orders made and carried out.
[2016-09-02] MEDS ORDERED: VALPROATE SODIUM 1,000 MG in NS 100 ML IV ONE (12:45)
--- NOTE | 2016-09-02 13:00 | NUR ---
DIALYSIS Pt with stable BP for dialysis, supported with Levophed 6 mcg/kg/min. Dialysis begins at bedside.
--- NOTE | 2016-09-02 13:30 | NUR ---
Dr. Rachel in to speak with family members of pt.
--- NOTE | 2016-09-02 13:45 | NUR ---
Dr. Park in to see pt. Dr. Park spoke with family to change pt's code status, code paper signed and placed in chart.
--- NOTE | 2016-09-02 14:13 | NUR ---
Nutrition F/U Admitting Diagnosis Renal failure, possible sepsis, UTI, anasarca, multiple liver masses Past Medical History DM, HTN, CKD, morbid obesity per MD notes Pertinent Medications Levofloxacin/D5% IV, morphine, zofran, D50% syringe, SSI, ativan, piperacillin/tazobactum Current Diet Order Clear Liquid (x3 days) Height (Feet) 5 feet Height (Inches) 10.00 inches Weight (Pounds) 350 pounds (admission) -- Bedscale: 435 lb (09/02/16, highly inaccurate) Weight (Calculated Kilograms) 158.226010 kilograms Patient Weight 158.757 kg Body Mass Index 50.21 kg/m2 [place]/Adjusted Body Weight IBW: 150 lb (68 kg); 233% of IBW; Adjusted IBW: 200 lb (91 kg) Estimated Needs 5598-8121 kcal/day (30-35 kcal/kg IBW for possible sepsis) Grams of Protein per Day 102-122 g/day (1.5-1.8 g/kg IBW for renal disease with HD, sepsi) Fluid Intake Goal Per MD for CKD Pertinent Labs 09/02/16: WBC 26.3 H (improving), K 6 H, BUN 105 H, CRE 7.12 H, BG 421 H, POC BG 403 H, Tbili 3.7 H, AST 237 H, ALT 78 WNL (improved), ALP 827 H (improving), Hgb 7.8 L, Hct 23 L, ALB 1.5 L, Na 134 L 08/30/16: CEA 2.2 WNL 08/29/16: Lactic acid 6.8 H, BNP 317 H Other Subjective Data Physical Assessment: Pt seen resting in bed, unresponsive, unable to engage in interview. Pt transferred from telemetry to ICU today d/t seizures. GI Integrity: Per EMR, abdomen is soft and non-distended with active bowel sounds. Records show last BM x1 08/31. No n/v/d/c recorded. PO Intakes: PO records show 2 refusals and poor intakes. Pt has been on clear liquid for about 3 days and NPO status x1 day prior to that. Consider initiating enteral feedings if poor PO intakes continue within the next 2-3 days. Integumentary: Willard score 13 (09/01/16). Wound consult (08/31/16): Skin is poor. 1) Right Medial/Plantar Foot: Appears to be a Diabetic Ulcer, present on admission. 2) Right Great Toe, Medial Aspect: Appears to be dark discoloration, present on admission. 3) Right Dorsal Foot at Joint Line: Appears to be a wound, present on admission. 4) Right Medial Distal Calf: Appears to be a wound, present on admission. 5) Right Posterior Calf: Scar tissue with three open wounds, present on admission. 6) Right Fifth Toe: Appears to be a wound, present on admission. Plans/Procedures: HD treatment cancelled for today d/t low BP. Pt is not yet meeting optimal nutritional needs. Pt not appropriate for nutrition education Problem, Etiology, Signs/Symptoms Altered nurition-related labs related to endocrine and renal dysfunctions as evidenced by BUN 102, CRE 5.69, BG 417, POC BG 470, and K 5.3. Increased nutrient requirements related to the metabolic demands for sepsis as evidenced by WBC 30.5 and lactic acid 6.8 and increased estimated needs for calories and protein. Expected Outcomes or Goals 1. Monitor PO intakes with goal of meeting at least 75% of estimated needs with acceptable tolerance. 2. Labs trending within normal limits 3. Weight loss, weight maintenance 4. Improved skin integrity, wound healing 5. Normal GI function Dietitian Recommendations * Continue clear liquid diet per MD * Consider initiate enteral feeds if/when medically appropriate. Follow Up High Risk: F/U in 2-3days Addendum: 09/02/16 at [address] CORRECTIONS: Weight (Pounds) 350 pounds (admission) -- Bedscale: 435 lb, 198 kg (09/02/16, highly inaccurate) New BMI: 61.2 kg/m2 (obesity class III, likely inflated) Problem, Etiology, Signs/Symptoms (modified) Altered nutrition-related labs related to endocrine and renal dysfunctions as evidenced by BUN 105, CRE 7.12, BG 421, POC BG 403, and K 6. Increased nutrient requirements related to the metabolic demands for sepsis as evidenced by WBC 26.3 and lactic acid 6.8 and increased estimated needs for calories and protein. I have reviewed/approved journalism intern's note. LP, RD
--- NOTE | 2016-09-02 16:00 | NUR ---
Wound Re-Evaluation: Patient was non-responsive, and received in a Bandera bed with an IsoFlex ИРИНА Mattress (with low air-loss therapy initiated) in ICU. Skin is poor. Blood Culture x 2 results in progress. Intrinsic factors that delay wound healing: Diabetes Mellitus. Extrinsic factors that delay wound healing: Decreased mobility. Wound care performed by night auditor nurse this morning. Dressings not removed for assessment, because doing so would decrease wound temperature and retard wound healing rate. Wound Assessment: 1) Right Medial/Plantar Foot: Appears to be a Diabetic Ulcer, present on admission. Bilateral feet have Charcot deformity. Recommend continue: Cleanse wound with normal saline. Put moisture barrier cream onto phillip-wound. Put Venelex ointment onto wound bed. Cover wound with foam dressing. Perform wound care daily, and as needed for dressing soiling or dislodgement. 2) Right Great Toe, Medial Aspect: Appears to be dark discoloration, present on admission. Wound bed has a hard feel. Recommend continue: No dressing needed. Continue to monitor site for worsening condition. 3) Right Dorsal Foot at Joint Line: Appears to be a wound, present on admission. Recommend continue: Cleanse wound with normal saline. Put moisture barrier cream onto phillip-wound. Put Venelex ointment onto wound bed. Cover wound with foam dressing, cut to size. Cover with ABD Pad. Wrap with marya wrap. Perform wound care daily, and as needed for dressing soiling or dislodgement. 4) Right Medial Distal Calf: Appears to be a wound, present on admission. 5) Right Posterior Calf: Scar tissue with three open wounds, present on admission. Recommend continue: Cleanse wounds with normal saline. Put moisture barrier cream onto phlilip-wounds. Put Venelex ointment onto wound beds. Cover wounds with foam dressings. Perform wound care daily, and as needed for dressing soiling or dislodgement. 6) Right Fifth Toe: Appears to be a wound, present on admission. Recommend continue: Cleanse wound with normal saline. Put moisture barrier cream onto phillip-wound. Put Venelex ointment onto wound bed. Cover wound with foam dressing, cut to size, then transparent dressing. Wrap with marya wrap. Perform wound care daily, and as needed for dressing soiling or dislodgement. Also recommend continue: Encourage and assist patient with repositioning every two hours with pillow support, off-load pressure areas with pillows for pressure re-distribution. Offload and float bilateral heels with pillows. Perform skin care and monitor skin integrity q shift. Put moisture barrier cream onto moisture susceptible areas qid and prn. Maintain patient on a low air-loss mattress.
--- NOTE | 2016-09-02 16:00 | NUR ---
Dialysis/Patient Update Dialysis complete with 300 ml output. Pt is lethargic, responsive to noxious stimuli. Family at bedside. Will continue to monitor.
[2016-09-02] MEDS: VALPROATE SODIUM 500 MG in D5W 100 ML IV SCH ×2 (17:11→21:32)
--- NOTE | 2016-09-02 17:30 | NUR ---
Patient Round Administered CHG bath and wound care on R leg per wound care instructions. Attempted to reposition pt, but pt's SBP decreased below 90 mmHg with repositioning. Pt remain supine. All extremities elevated with pillow. Call light in reach. Family at bedside, will continue to monitor.
--- NOTE | 2016-09-02 19:10 | NUR ---
CLOSING/ENDORSEMENT Pt lethargic, responsive to pain and says, "Ow," but does not say anything else. Decreased SBP noted, levophed titrate from 8 mcg/kg/min to 10 mcg/kg/min. All titrations and vitals signs recorded and placed in chart. Family remain at bedside. Endorsed care to Ector Walters RN via SBAR tool and bedside round.
--- NOTE | 2016-09-02 19:30 | NUR ---
Initial note Received from KYLEE Suero. Resting with eyes closed, unresponsive to verbal or tactile stimuli. On O2 2l via NC. O2 sat 100 %. No respiratory distress noted. Family at bedside. Bp 95/37, hr 86 resp 11. Occasional right arm twitching noted. On Levophed drip 12 mcg/min. IV access right thumb intact with no redness or swelling to insertion site. Bilateral upper and lower extremities 2+edema noted. All extremities elevated on pillows. Right leg wound dressings intact and clean. HOB kept elevated. Fall precautions in place.
--- NOTE | 2016-09-02 19:55 | NUR ---
LEVOPHED DRIP BP 89/38, HR 90, o2 SAT 99 % ON O2 2L VIA N/C. LEVOPHED DRIP INCREASED TO 14 MCG/MIN
--- NOTE | 2016-09-02 21:28 | NUR ---
Rounds BP 112/48, hr 100. Family at bedside and talking to patient. Opens eyes spontaneously, then closes. Eyes do not track. Remains non-verbal. Occasional right arm tremors noted.
[2016-09-02] MEDS: LORazepam 2 MG/ML VIAL IVP PRN ×2 (22:37→23:34)
--- NOTE | 2016-09-02 22:40 | NUR ---
Seizures Right arm shaking noted lasting 2-3 seconds, stopping and resuming x 3. Ativan IV given.
--- NOTE | 2016-09-02 23:35 | NUR ---
Seizures Increased shaking and jerking of right arm and shoulders noted lasting 5-10 seconds and reoccuring 2-3 times. Bp 143/82, hr 108, O2 sat 98%. Ativan IV given. Hob kept elevated. Seizures precautions in place.
[2016-09-03] VITALS (25 sets, daily range): BP systolic 85–137; BP diastolic 33–78; PULSE 91–114; RESP 12–30; TEMP 97–99.8; O2SAT 95–99
[2016-09-03] MEDS: PIPERACILLIN/TAZO 3.375/DEX-IS 50 ML IV SCH ×4 (00:30→19:24)
--- NOTE | 2016-09-03 00:51 | NUR ---
Blood pressure/Levophed drip BP 83/55, hr 99, resp 23, O2 sat 99%. Levophed drip increased to 16 mcg/kg/min. Will continue to monitor.
[2016-09-03] MEDS: NOREPINEPHRINE BITARTRATE 4 MG in D5W 246 ML IV PRN ×3 (00:57→09:25)
[2016-09-03] MEDS: LORazepam 2 MG/ML VIAL IVP PRN ×6 (00:57→22:42)
--- NOTE | 2016-09-03 00:57 | NUR ---
Seizure Right arm jerking and head shaking noted lasting 2-4 seconds and reoccurred x 2. Ativan 1 mg IV given
--- NOTE | 2016-09-03 01:06 | NUR ---
Blood pressure BP 94/54, hr 96.
[2016-09-03] MEDS: INSULIN REGULAR, HUMAN 100 UNITS/ML, 10 ML VIAL (novoLIN R) SUBCUT PRN ×3 (01:11→12:19)
--- NOTE | 2016-09-03 01:18 | NUR ---
Blood pressure/levophed drip BP 74/39, hr 106, resp 22, O2 sat 98%. Levophed drip increased to 18 mcg/kg/min.
[2016-09-03] MEDS: ALBUTEROL SULFATE 0.083% 2.5 MG/3 ML VIAL.NEB INH SCH ×6 (03:00→23:00)
[2016-09-03] MEDS: IPRATROPIUM BROM 0.5 MG/2.5 ML VIAL.NEB (ATROVENT) INH SCH ×6 (03:00→23:00)
[2016-09-03] MEDS ORDERED: NOREPINEPHRINE 4 MG/4 ML VIAL IV ONE (05:19)
[2016-09-03] MEDS ORDERED: VALPROATE SODIUM 100 MG/ML VIAL (DEPACON) IV ONE (06:05)
[2016-09-03] MEDS: VALPROATE SODIUM 500 MG in D5W 100 ML IV SCH ×3 (06:12→21:25)
--- NOTE | 2016-09-03 06:27 | NUR ---
Blood sugar Fingerstick checked = 387 mg/dL. No s/s of hypo/hyperglycemia. 10 units regular insulin given.
--- NOTE | 2016-09-03 07:00 | NUR ---
Closing note Resting quietly, no apparent distress. Remains unresponsive to verbal or tactile stimuli. No seizure activity noted. Seizure precautions in place. Levophed drip infusing @ 15 mcg/kg/min. Blood pressure stable. Daughter at bedside. Will give report to oncoming shift RN.
--- NOTE | 2016-09-03 07:30 | NUR ---
RECEIVED PT COMATOSE ON VENT WITH 7.5 ET TAPED AT 23 CM LIP LINE. NO DISTRESS ON VENT SETTINGS OF AC 18/550/40%/P5. MINIMAL SECRETIONS PINK SUCTIONED FROM ET. PT HAS A BITE BLOCK IN PLACE. LUNGS WITH CRACKLES BILATERALLY. HOB UP. ABD SOFT WITH BOWEL SOUNDS. NGT IN PLACE AND CLAMPED. LUNA 3MM. PT DOES NOT RESPOND TO PAINFUL STIMULUS. ST ON MONITOR RATE 120. PT HAS A LEFT CHEST LEYLA WITH AMIODARONE AT 0.5MG/MIN INFUSING THRU THE PIGTAIL PORT. MONTGOMERY CATH WITH LISA URINE IN BAG. PT HAS A LEFT UPPER ARM PICC WITH TPN AT 50CC/HR AND NS AT 50 CC/HR. PT HAS A SKIN TEAR TO HER BACK WITH A FOAM DRESSING ON IT. EXTREMITIES LIFTED UP ON PILLOWS AND OFF BED. REPOSITINED IN BED WITH PILLOWS. Addendum: 09/03/16 at 1930 by Keshia Linder RN PT NOTED TO BE HAVING FREQUENT SEIZURES TO RIGHT UPPER BODY.
--- NOTE | 2016-09-03 08:00 | NUR ---
DR WHEELER IN TO SEE PT. FAMILY NOT IN ROOM WHEN HE WENT BACK IN TO SPEAK WITH THEM. Addendum: 09/03/16 at 1931 by Keshia Linder RN DR WHEELER AWARE OF FREQUENT SEIZURES.
[2016-09-03 08:18] LABS: HEMATOCRIT 26.2 % (36-48); HEMOGLOBIN 8.6 g/dL (12.0-16.0); MEAN CORPUSCULAR HEMOGLOBIN 26 pg (27-31); MEAN CORPUSCULAR HGB CONC 33 % (32-36); MEAN CORPUSCULAR VOLUME 79 fL (79.0-98.0); PLATELET COUNT (AUTO) 97 K/uL (130-430); RED BLOOD CELL COUNT(AUTO) 3.31 MIL/uL (4.2-6.2); RED CELL DISTRIBUTION WIDTH 22.5 % (9.0-15.0)
[2016-09-03 08:20] LABS: ALANINE AMINOTRANSFERASE 78 U/L (12-78); ALBUMIN 1.4 g/dL (3.4-4.8); ANION GAP 20 (5-15); ASPARTATE AMINOTRANSFERASE 330 U/L (10-37); CALCIUM 7.5 mg/dL (8.4-11.0); CHLORIDE 97 mmol/L (98-107); CREATININE 6.07 mg/dL (0.55-1.30); POTASSIUM 5.6 mmol/L (3.5-5.1); SODIUM SERUM 135 mmol/L (136-145); TOTAL PROTEIN, SERUM 7.1 g/dL (6.4-8.3); UREA NITROGEN, BLOOD 77 mg/dL (8-21)
[2016-09-03 08:26] LABS: GLUCOSE 418 mg/dL (70-99)
--- NOTE | 2016-09-03 08:30 | NUR ---
VENT CHANGED TO AC 14 AND VT [address] WHEELER. Addendum: 09/03/16 at 1935 by Keshia Linder RN ABOVE ENTRY DOCUMENTED ON WRONG PT.
[2016-09-03] MEDS: BALSAM PERU/CASTOR OIL 60 GM OINT...G. TP SCH (09:00)
[2016-09-03 09:15] LABS: BAND % (MANUAL) 9 % (0-6); LYMPHOCYTES % (MANUAL) 22 % (20-46)
[2016-09-03 09:16] LABS: BASOPHILS % (MANUAL) 0 % (0-2); CORRECTED WHITE BLOOD COUNT 25.7 K/uL (4.5-11.0); EOSINOPHILS % (MANUAL) 0 % (0-7); METAMYELOCYTES % 1 % (0-0); MONOCYTES % (MANUAL) 2 % (0-11); MYELOCYTES % 1 % (0-0)
--- NOTE | 2016-09-03 10:00 | NUR ---
DR RIVERA IN TO SEE PT. ORDERS LEFT. HE SPOKE WITH THE PTS DAUGHTER JESSICA AT THE BEDSIDE. FAMILY UNDECIDED ON HOSPICE AND FEEL OVERWHELMED. PT UNRESPONSIVE WITH VERY FREQUENT SEIZURES, JERKING ON THE RIGHT ARM AND SHOULDER. LEVOPHED AT 40 MCGS AND UNABLE TO GET A BP. ST ON MONITOR RATE 104. SATS 99% ON 2L NC. HOB UP SLIGHTLY.
[2016-09-03] MEDS: levETIRAcetam 1,000 MG in NS 100 ML IV SCH ×2 (10:28→20:10)
[2016-09-03] MEDS ORDERED: COMMUNICATION ORDER XX ONE (11:30)
[2016-09-03] MEDS ORDERED: COMMUNICATION ORDER XX SCH (11:45)
[2016-09-03] MEDS ORDERED: NOREPINEPHRINE BITARTRATE 8 MG in D5W 242 ML IV PRN (11:45)
[2016-09-03] MEDS: NOREPINEPHRINE BITARTRATE 8 MG in NS 242 ML IV PRN ×3 (12:28→22:20)
--- NOTE | 2016-09-03 12:29 | NUR ---
LEVOPHED AT 30 MCGS AND SWITCHED TO LEYLA CATH BROWN PORT PER DR RIVERA. FAMILY AT BEDSIDE. REMAINS ST ON MONITOR. PT OCCASIONALLY HAS A WEAK COUGH. ATTEMPTED TO SUCTION MOUTH BUT DIFFICULT. WILL CONTINUE TO MONITOR.
--- NOTE | 2016-09-03 12:50 | NUR ---
LEVOPHED INCREASED TO 40 MCGS. SBP 61.
--- NOTE | 2016-09-03 13:14 | NUR ---
EEG BEING DONE. PT HAVING SEIZURES WHILE HAVING THE TEST.
--- NOTE | 2016-09-03 14:00 | NUR ---
REPOSITIONED IN BED WITH PILLOW SUPPORT. LEVOPHED AT 40 MCGS. PT COMATOSE AND DOESN'T RESPOND TO PAIN. CONTINUES TO HAVE SEIZURES DESPITE KEPPRA AND ATIVAN.
[2016-09-03] MEDS ORDERED: LORazepam 2 MG/ML VIAL IVP ONE (15:15)
--- NOTE | 2016-09-03 18:26 | NUR ---
PT CONTINUES TO HAVE FREQUENT SEIZURES TO RIGHT ARM. DR PIMENTEL WHO IS STRAIGHTENING PRESS OPERATOR FOR DR GARCIA CALLED IN FOR UPDATE A COUPLE OF HOURS AGO AND I TOLD HIM. DR PIMENTEL INCREASED ATIVAN ORDER. PT BEING MEDICATED WITH ATIVAN. FAMILY AT BEDSIDE. LEVOPHED AT 40 MCGS WITH SBP 113. WILL CONTINUE TO MONITOR.
--- NOTE | 2016-09-03 19:30 | NUR ---
PM ASSESSMENT PT RESTING IN BED, EYES CLOSED, UNRESPONSIVE. SINUS TACHYCARDIA ON APPRAISER REAL ESTATE. PT ON O2 2L NASAL CANNULA. O2 SAT 100%. BREATHING EVEN AND UNLABORED. LEYLA CATH NOTED ON LEFT CHEST DRESSING CLEAN DRY AND INTACT. NO SIGNS OF INFECTION OR INFILTRATION. LEVOPHED RUNNING @ 40 MCG/MIN. PERIPHERAL IV 24G TO RIGHT THUMB DRESSING CLEAN DRY AND INTACT. NO SIGN OF INFECTION OR INFILTRATION. ELEPHANTITIS NOTED TO BOTH LEGS. SKIN TEAR NOTED ON RIGHT ARM COVERED WITH DRY DRESSING. FAMILY AT BEDSIDE. CALL LIGHT WITHIN REACH. BED AT LOWEST POSITION. CONTINUE TO MONITOR.
--- NOTE | 2016-09-03 20:36 | NUR ---
SEIZURE NOTED TO THE RIGHT ARM LASTING FOR 10 SECONDS. ATIVAN GIVEN. Addendum: 09/04/16 at 0320 by Radha Hernandez RN SEIZURE NOTED TO THE RIGHT ARM LASTING FOR 5-10 SECONDS, REOCCURRING 3-4 TIMES. ATIVAN GIVEN. SEIZURE PRECAUTION IN PLACE.
--- NOTE | 2016-09-03 23:47 | NUR ---
High Temperature Called Dr Burnham regarding pt's high temperature 100.7 F and notified of pt's multiple seizure episodes. New Order received and carried out
[2016-09-04] VITALS (24 sets, daily range): BP systolic 67–118; BP diastolic 29–87; PULSE 100–185; RESP 11–27; TEMP 98.5–100.7; O2SAT 94–99
[2016-09-04] MEDS ORDERED: ACETAMINOPHEN 650 MG SUPP.RECT RC ONE (00:05)
[2016-09-04] MEDS: INSULIN REGULAR, HUMAN 100 UNITS/ML, 10 ML VIAL (novoLIN R) SUBCUT PRN ×4 (00:05→18:38)
[2016-09-04] MEDS: NOREPINEPHRINE BITARTRATE 8 MG in NS 242 ML IV PRN ×5 (00:30→23:36)
[2016-09-04] MEDS: LORazepam 2 MG/ML VIAL IVP PRN ×7 (00:30→22:24)
[2016-09-04] MEDS ORDERED: PIPERACILLIN/TAZOBACTAM 3.375 GM/VIAL (ZOSYN) IV ONE (00:55)
[2016-09-04] MEDS: IPRATROPIUM BROM 0.5 MG/2.5 ML VIAL.NEB (ATROVENT) INH SCH ×6 (03:00→23:00)
[2016-09-04] MEDS: ALBUTEROL SULFATE 0.083% 2.5 MG/3 ML VIAL.NEB INH SCH ×6 (03:00→23:00)
[2016-09-04] MEDS: VALPROATE SODIUM 500 MG in D5W 100 ML IV SCH ×3 (05:36→21:20)
[2016-09-04] MEDS: PIPERACILLIN/TAZO 3.375/DEX-IS 50 ML IV SCH ×4 (06:01→18:35)
[2016-09-04] MEDS ORDERED: NOREPINEPHRINE 4 MG/4 ML VIAL IV ONE ×2 (06:52→10:37)
--- NOTE | 2016-09-04 07:18 | NUR ---
GAVE REPORT TO ONCOMING NURSE
--- NOTE | 2016-09-04 07:30 | NUR ---
RECEIVED PT COMATOSE ON VENT HAVING FREQUENT SEIZURES TO THE RIGHT SIDE OF HER BODY. PUPILS PINPOINT AND SLUGGISH TO REACT. ST ON MONITOR. BP SUPPORTED WITH LEVOPHED AT 40MCGS/MIN. OTHER IVF INFUSING AT 3 CC/HR VIA RIGHT THUMB 24G. PT HAS 02 AT 2L NC WITH SATS 98%. RESP IRREGULAR AND LABORED.LUNGS WITH CRACKLES BILATERALLY. HOB UNABLE TO BE UP DUE TO BP. LEFT CHEST LEYLA CATH WITH LEVOPHED INFUSING AT 40 MCGS. UNABLE TO HAVE SCD'S DUE TO WOUNDS ON RIGHT LEG. ST ON MONITOR. WILL CONTINUE TO MONITOR. FAMILY AT BEDSIDE.
--- NOTE | 2016-09-04 09:30 | NUR ---
PT CONTINUES TO HAVE VERY FREQUENT SEIZURES. ST RATE 130'S ON MONITOR. WILL CONTINUE TO MONITOR.
[2016-09-04] MEDS: levETIRAcetam 1,000 MG in NS 100 ML IV SCH ×2 (09:43→20:19)
--- NOTE | 2016-09-04 12:30 | NUR ---
PTS HR SUDDENLY WENT UP TO 180'S. SBP 80-90. TEMP 99.0. TYLENOL SUPP GIVEN.
[2016-09-04] MEDS: ACETAMINOPHEN 650 MG SUPP.RECT RC PRN ×2 (12:35→16:35)
--- NOTE | 2016-09-04 13:00 | NUR ---
SPOKE WITH JESSICA ON THE PHONE AND INFORMED HER THAT HER MOMS HR IS IN THE 180'S. REMAINS ON LEVOPHED AT 40 MCGS. AND CONTINUES OT HAVE FREQUENT SEIZURES. ATIVAN GIVEN ALREADY. SOME FAMILY AT BEDSIDE.
[2016-09-04] MEDS: DEXAMETHASONE SOD PHOSPHATE 4 MG/ML VIAL IVP SCH ×3 (13:04→23:59)
[2016-09-04] MEDS ORDERED: NS 500 ML IV ONE (13:44)
[2016-09-04] MEDS ORDERED: DIGOXIN 0.5 MG/2 ML AMP IVP ONE (13:45)
[2016-09-04] MEDS ORDERED: DIGOXIN 0.5 MG/2 ML AMP ONE (13:51)
--- NOTE | 2016-09-04 13:56 | NUR ---
DR RIVERA IN TO SEE PT. ORDERS LEFT. NS 500CC WIDE OPEN STARTED AND DIGOXIN 0.25MG IVP GIVEN FOR HR 180'S. FAMILY AT BEDSIDE. PT CONTINUES TO HAVE FREQUENT SEIZURES.
--- NOTE | 2016-09-04 14:30 | NUR ---
HR REMAINS ELEVATED DESPITE NS FLUID BOLUS AND IV DIGOXIN. LEVOPEHD REMAINS AT 40 MCGS.
[2016-09-04] MEDS: BALSAM PERU/CASTOR OIL 60 GM OINT...G. TP SCH (16:08)
--- NOTE | 2016-09-04 16:35 | NUR ---
PT FEELS WARM. PT HAS A BLANKET ON AT THE FAMILY'S REQUEST. RECOMMENDED THAT BLANKET BE REMOVED BUT THEY WOULD LIKE IT TO BE ON. TEMP 100.0. TYLENOL SUPP GIVEN. ICE PACKS APPLIED.
--- NOTE | 2016-09-04 16:50 | NUR ---
SPOKE TO DR RIVERA ABOUT COMFORT MEASURES FOR PT. HE SAID WE COULD USE MORPHINE BUT TALK TO THE FAMILY FIRST AND SEE IF THEY WOULD LIKE US TO GIVE IT. SPOKE TO PTS DAUGHTER JESSICA AND DISCUSSED GIVING A MORPHINE DOSE TO SEE IF IT WOULD HELP HER TO BE MORE COMFORTABLE. INFORMED HER THAT IT MIGHT EFFECT THE RESP DRIVE AND HASTEN HER PASSING AWAY. SHE WOULD LIKE TO TALK TO HER BROTHER ABOUT IT. INSTRUCTED HER TO LET US KNOW IF THEY WOULD LIKE US TO GIVE IT. CHRIS DECLINED A CLERGY VISIT.
--- NOTE | 2016-09-04 19:15 | NUR ---
FAMILY NOW REQUESTING THAT MORPHINE BE GIVEN. INFORMED THEM THAT I WOULD INDORSE IT TO THE ONCOMING NURSE I AM IN THE MIDDLE OF REPORT AT THIS TIME. REPORT GIVEN TO ONCOMING RN. LOTS OF FAMILY AT BEDSIDE. HR REMAINS 170, LEVOPHED AT 40 MCGS AND BP 98/49.
--- NOTE | 2016-09-04 19:30 | NUR ---
PM ASSESSMENT PT RESTING IN BED, EYES CLOSED, UNRESPONSIVE. SVT ON EDUCATIONAL RECRUITER. HR 183. bp 84/65. RR 13. PT ON O2 2L NASAL CANNULA. O2 SAT 98%. BREATHING EVEN AND UNLABORED. LEYLA CATH NOTED ON LEFT CHEST DRESSING CLEAN DRY AND INTACT. NO SIGNS OF INFECTION OR INFILTRATION. LEVOPHED RUNNING @ 40 MCG/MIN. PERIPHERAL IV 24G TO RIGHT THUMB DRESSING CLEAN DRY AND INTACT. NO SIGN OF INFECTION OR INFILTRATION. ELEPHANTITIS NOTED TO BOTH LEGS. SKIN TEAR NOTED ON RIGHT ARM COVERED WITH DRY DRESSING. FAMILY AT BEDSIDE. MORPHINE GIVEN WITH THE APPROVAL FROM PT'S FAMILY. EDUCATION GIVEN TO PT AND HER FAMILY REGARDING MEDICATION'S SIDE EFFECTS WHICH CAN DEPRESS PT'S BREATHING AND BLOOD PRESSURE. FAMILY TOTALLY UNDERSTANDS AND STILL WANTS MORPHINE FOR THE PT. CALL LIGHT WITHIN REACH. BED AT LOWEST POSITION. CONTINUE TO MONITOR.
--- NOTE | 2016-09-04 19:45 | NUR ---
PT WENT TO VENTRICULAR FIBRILLATION @ 1944, THEN CONVERTED BACK TO SVT @ 1948
[2016-09-04] MEDS: MORPHINE 2 MG/ML INJ. SYRINGE IVP PRN (19:56)
--- NOTE | 2016-09-04 23:00 | NUR ---
DR NICOLE Burnham called inquiring about Pt, and gave orders. 1. 1 amp of Sodium Bicarb now, and in 20min give 2 amp of Sodium Bicarb. 2. Give 1 liter NS bolus.
[2016-09-04] MEDS ORDERED: NACL 0.9% 1,000 ML IV ONE (23:15)
[2016-09-04] MEDS ORDERED: SODIUM BICARBONATE 8.4% JECT 50 MEQ/50 ML SYRINGE IVP ONE ×2 (23:15→23:45)
[2016-09-05] VITALS: BP 121/91; PULSE 135; RESP 15; TEMP 98.7; O2SAT 96
[2016-09-05] MEDS: PIPERACILLIN/TAZO 3.375/DEX-IS 50 ML IV SCH
[2016-09-05] MEDS: INSULIN REGULAR, HUMAN 100 UNITS/ML, 10 ML VIAL (novoLIN R) SUBCUT PRN
[2016-09-05] MEDS: MORPHINE 4 MG/ML INJ. SYRINGE IVP PRN (00:32)
[2016-09-05 01:00] VITALS: BP 90/48; PULSE 160; RESP 14; O2SAT 92
--- NOTE | 2016-09-05 01:42 | NUR ---
PRONOUNCEMENT OF PT STARTED IN VENTRICULAR FIBRILLATION AT 0106, THEN CONVERTED ASYSTOLE AT 0142. PT'S WAS PRONOUNCED BY 2 RN NURSES. [facility] CALLED AT 0208. SPOKE WITH MS. CAMERON MENDOZA. CASE NUMBER [id number]. DESIZING MACHINE OPERATOR NOTIFIED AND SPOKE WITH MS. RUFFIN. THE BODY WAS RELEASED FROM BOTH [facility] AND [employer]ING MACHINE OPERATOR. FAMILY AT BEDSIDE.
--- NOTE | 2016-09-05 04:18 | NUR ---
Notified Dr.s Park, Feliciano Huff, Tej Damon, Virginie and Dr. Herrera of Patient expiring. Spoke to Cindy. Nurse is aware.
== END 2016-09-05 01:42 | disposition expired | DRG 871 ==
LOC: SED 06:02 → STU 08:20 → SIC 09-02 09:47
PROVIDERS: ADMIT Internal Medicine Hospice and Palliative Medicine; ATTEND Internal Medicine Hospice and Palliative Medicine
PROC: 02HV33Z Insertion of Infusion Device into Superior Vena Cava, Percutaneous Approach (ICD-10-PCS; principal; 2016-08-31)
PROC: B548ZZA Ultrasonography of Superior Vena Cava, Guidance (ICD-10-PCS; 2016-08-31)
PROC: 5A1D60Z (ICD-10-PCS; 2016-08-31)
DX: A41.9 Sepsis, unspecified organism (principal); K72.00 Acute and subacute hepatic failure without coma; R65.21 Severe sepsis with septic shock; N17.9 Acute kidney failure, unspecified; N39.0 Urinary tract infection, site not specified; C78.7 Secondary malignant neoplasm of liver and intrahepatic bile duct; Z68.44 Body mass index [BMI] 60.0-69.9, adult; E11.22 Type 2 diabetes mellitus with diabetic chronic kidney disease; I12.9 Hypertensive chronic kidney disease with stage 1 through stage 4 chronic kidney disease, or unspecified chronic kidney disease; N18.9 Chronic kidney disease, unspecified; D50.9 Iron deficiency anemia, unspecified; D69.6 Thrombocytopenia, unspecified; E11.65 Type 2 diabetes mellitus with hyperglycemia; E66.01 Morbid (severe) obesity due to excess calories; E87.5 Hyperkalemia; B96.20 Unspecified Escherichia coli [E. coli] as the cause of diseases classified elsewhere; G40.901 Epilepsy, unspecified, not intractable, with status epilepticus; N63 Unspecified lump in breast; Z51.5 Encounter for palliative care; N20.0 Calculus of kidney; C80.1 Malignant (primary) neoplasm, unspecified; I83.019 Varicose veins of right lower extremity with ulcer of unspecified site; N28.1 Cyst of kidney, acquired; Z66 Do not resuscitate; Z88.1 Allergy status to other antibiotic agents; Z79.82 Long term (current) use of aspirin; Z79.899 Other long term (current) drug therapy; Z99.2 Dependence on renal dialysis
CPT/HCPCS: 36415; 71010; 76770; 80053; 80074; 80164-TC; 81000-TC; 82378; 82550-TC; 82962; 83605; 83690-TC; 83880; 84443-TC; 84484; 85007; 85027; 85379; 85610-TC; 85730-TC; 86580; 87040-TC; 87081; 87086; 87186-TC; 90935; 90937; 93005; 93970; 94640; 94760; 95816; 96365; 96375; 99285; C1751; J1100; J1160; J1644; J1815; J1953; J1956; J2001; J2060; J2270; J2405; J2543; J7030; J7040; J7042; J7050; J7060